=== PATIENT | male | born 1955 | race Caucasian/White ===

== ENCOUNTER 2018-12-11 18:00 | Inpatient (IN) | payer OTHER ==
[~2018-12-11] VITALS: Ht 167.6 cm; Wt 97.1 kg
[~2018-12-11 18:00] MED LIST: ALLO100T PO; BENA40TA56 PO; CLOP75TA27 PO; HYDR-3601 PO; METO10TA3 PO; SIMV40TA3 PO
[2018-12-12] VITALS (29 sets, daily range): BP systolic 138–176; BP diastolic 65–107; PULSE 62–73; RESP 15–22; Ht 167.6 cm; Wt 97.1 kg
[2018-12-12] MEDS ORDERED: DEXTROSE 5%-0.45% NACL 1,000 ML IV SCH (00:46)
--- NOTE | 2018-12-12 00:55 | HP ---
Date/Time of Note Date/Time of Note DATE: 12/12/18 TIME: 00:55 Assessment/Plan VTE Prophylaxis SCD applied (from Ns): Yes Pharmacological prophylaxis: other (plan for OR today ) Lines/Catheters IV Catheter Type (from Nrsg): Saline Lock Assessment/Plan Assessment/Plan 1. Right Tibia fracture - comminuted 2. H/o HTN 3. H/O HL 4. H/O psoriasis Plan: admission to med/surge floor BP stable,12 lead EKG NSR< CXR negative for acute findings Labs including CBC, CMP, PT pTT INR unremarkable Medically stable for Intramedullary nailing with appropriate surgical risks and complications Orthopedic Surgery Dr. Carlitos reynoso planning for OR on Thursday for GI prophylaxis SCD for DVT prophylaxis HPI/ROS Admit Date/Time Admit Date/Time Dec 12, 2018 at 00:08 Hx of Present Illness 63 M with PMHx of HTN< HL, H/o Tonsillectomy, Psoriasis who presented with after concrete fall at his leg, he working at his work and he is a construction job cost estimator. He presented to [facility] with right leg pain, he is noted to have right tibia fibula comminuted fracture that will require IM nailing. Due to some malfunction of OR at that hospital pt was transferred to [facility]- Orthopedic DrLincoln Reynoso has been consulted on the case and plan for OR in AM c/o Right leg pain, morphine IV is not working, BP has been stable< 12 Lead EKG normal, CXR negative for acute findings ROS Constitutional: no complaints Eyes: no complaints ENT: no complaints Respiratory: no complaints Cardiovascular: no complaints Gastrointestinal: no complaints Genitourinary: no complaints Musculoskeletal: bone/joint pain, swelling, other (right leg pain ) Skin: no complaints Neurologic: no complaints Endocrine: no complaints Lymphatic: no complaints Psychological: no complaints Immunologic: no complaints PMH/Family/Social Past Medical History Medical History: high cholesterol, hypertension, other (Psoriasis) Medications Current Medications Dextrose/Sodium Chloride 1,000 ml @ 75 mls/hr [id number] IV ; Start 12/12/18 at 00:46; Status UNV IV Flush (NS 3 ml) 3 ml PER PROTOCOL IV ; Start 12/12/18 at 01:00; Status UNV Ondansetron HCl (Zofran Inj) 4 mg Q6H PRN IV NAUSEA/VOMITING; Start 12/12/18 at 01:00; Status UNV Acetaminophen (Tylenol Tab) 650 mg Q6H PRN PO .PAIN 1-3 OR TEMP; Start 12/12/18 at 01:00; Status UNV Acetaminophen/ Hydrocodone Bitart ([place] (5/325)) 1 tab Q6H PRN PO .MOD PAIN 4- 6; Start 12/12/18 at 01:00; Status UNV Morphine Sulfate (morphine) 2 mg Q4H PRN IV .SEVERE PAIN 7-10; Start 12/12/18 at 01:00; Status UNV Docusate Sodium (Colace) 100 mg Q12H PRN PO .CONSTIPATION; Start 12/12/18 at 01:00; Status UNV Magnesium Hydroxide (Milk Of Mag) 30 ml DAILY PRN PO .CONSTIPATION; Start 12/12/18 at 01:00; Status UNV Bisacodyl (Dulcolax) 5 mg DAILY PRN PO .CONSTIPATION; Start 12/12/18 at 01:00; Status UNV Sodium Biphosphate/ Sodium Phosphate (Fleet Enema) 133 ml DAILY PRN [place] .CONSTIPATION; Start 12/12/18 at 01:00; Status UNV Zolpidem Tartrate (Ambien) 5 mg QHS PRN PO .INSOMNIA; Start 12/12/18 at 01:00; Status UNV Famotidine (Pepcid Iv) 20 mg Q12 IV ; Start 12/12/18 at 09:00; Status UNV Coded Allergies: No Known Allergy (Unverified , 12/12/18) Past Surgical History Past Surgical Hx: other (Tonsillectomy,) Family History Significant Family History: no pertinent family hx Social History Alcohol Use: none Smoking Status: Never smoker Drug Use: none Exam/Review of Systems Exam Constitutional: alert Psych: no complaints Head: normocephalic Eyes: nl conjunctiva ENMT: nl external ears & nose Neck: supple, non-tender Respiratory: clear to auscultation, normal air movement, diminished breath sounds Cardiovascular: regular rate and rhythm, nl pulses Gastrointestinal: soft, non-tender Musculoskeletal: nl extremities to inspection, nl gait and stance, muscle weakness, swelling, other (Right leg pain and swelling ) Neurological: STILL OPERATOR HELPER II-XII intact, nl mental status, nl speech, nl strength Skin: nl turgor Lymph: nl lymph nodes ROSS ISAACS MD Dec 12, 2018 00:55
[2018-12-12] MEDS ORDERED: MAGNESIUM HYDROXIDE 30ML CUP PO PRN (01:00)
[2018-12-12] MEDS ORDERED: ZOLPIDEM 5 MG TAB PO PRN (01:00)
[2018-12-12] MEDS ORDERED: DOCUSATE SODIUM 100 MG CAP PO PRN (01:00)
[2018-12-12] MEDS ORDERED: ONDANSETRON 4 MG INJ IV PRN ×2 (01:00→15:00)
[2018-12-12] MEDS ORDERED: NACL 0.9% 3 ML SYG IV SCH (01:00)
[2018-12-12] MEDS ORDERED: morphine 2 MG INJ IV PRN ×3 (01:00→15:00)
[2018-12-12] MEDS ORDERED: ACETAMINOPHEN 325 MG TAB PO PRN (01:00)
[2018-12-12] MEDS ORDERED: NA PHOSPHATE/BIPHOS 133 ML ENEMA PR PRN (01:00)
[2018-12-12] MEDS ORDERED: HYDROCODONE/APAP (5/325) TAB PO PRN ×3 (01:00→15:00)
[2018-12-12] MEDS ORDERED: BISACODYL (EC) 5 MG TAB PO PRN (01:00)
[2018-12-12] MEDS: HYDROmorphONE 1 MG/ML SYG IV PRN ×3 (01:27→23:06)
[2018-12-12] MEDS: BENAZEPRIL 40 MG TAB PO SCH (08:36)
[2018-12-12] MEDS: FAMOTIDINE 20 MG INJ IV SCH ×2 (08:36→20:45)
[2018-12-12] MEDS: AMLODIPINE 5 MG TAB PO SCH (08:36)
--- NOTE | 2018-12-12 10:40 | PREAC ---
Date/Time of Note Date/Time of Note DATE: 12/12/18 TIME: 10:38 Anesthesia Eval and Record Evaluation Time Pre-Procedure Interview DATE: 12/12/18 TIME: 10:38 Age 63 Sex male NPO: 8 hrs Preoperative diagnosis Rt Tibia fracture Planned procedure Rt Tibia ORIF Past Medical History Past Medical History: Includes Cardio: HTN, Dyslipidemia GI: Morbid obesity Surgery & Anesthesia Issues No known issue Meds Anticoagulation: No Beta Aydee within 24 hr: No Reason Beta Aydee not given: Pt. not on B-Aydee Current Medications Dextrose/Sodium Chloride 1,000 ml @ 75 mls/hr [id number] IV Last administered on 12/12/18at 01:26; Admin Dose 75 MLS/HR; Start 12/12/18 at 00:46 IV Flush (NS 3 ml) 3 ml PER PROTOCOL IV ; Start 12/12/18 at 01:00 Ondansetron HCl (Zofran Inj) 4 mg Q6H PRN IV NAUSEA/VOMITING; Start 12/12/18 at 01:00 Acetaminophen (Tylenol Tab) 650 mg Q6H PRN PO .PAIN 1-3 OR TEMP; Start 12/12/18 at 01:00 Acetaminophen/ Hydrocodone Bitart ([place] (5/325)) 1 tab Q6H PRN PO .MOD PAIN 4- 6; Start 12/12/18 at 01:00 Docusate Sodium (Colace) 100 mg Q12H PRN PO .CONSTIPATION; Start 12/12/18 at 01:00 Magnesium Hydroxide (Milk Of Mag) 30 ml DAILY PRN PO .CONSTIPATION; Start 12/12/18 at 01:00 Bisacodyl (Dulcolax) 5 mg DAILY PRN PO .CONSTIPATION; Start 12/12/18 at 01:00 Sodium Biphosphate/ Sodium Phosphate (Fleet Enema) 133 ml DAILY PRN [place] .CONSTIPATION; Start 12/12/18 at 01:00 Zolpidem Tartrate (Ambien) 5 mg QHS PRN PO .INSOMNIA; Start 12/12/18 at 01:00 Famotidine (Pepcid Iv) 20 mg Q12 IV Last administered on 12/12/18at 08:36; Admin Dose 20 MG; Start 12/12/18 at 09:00 Hydromorphone HCl (Dilaudid) 1 mg Q4H PRN IV SEVERE PAIN LEVEL 7-10 Last administered on 12/12/18at 08:39; Admin Dose 1 MG; Start 12/12/18 at 01:00 Atorvastatin Calcium (Lipitor) 80 mg HS PO ; Start 12/12/18 at 21:00 Benazepril HCl (Lotensin) 40 mg DAILY PO Last administered on 12/12/18at 08:36; Admin Dose 40 MG; Start 12/12/18 at 09:00 Amlodipine Besylate (Norvasc) 5 mg DAILY PO Last administered on 12/12/18at 08:36; Admin Dose 5 MG; Start 12/12/18 at 09:00 Meds reviewed: Yes Allergies Coded Allergies: No Known Allergy (Unverified , 12/12/18) Allergies Reviewed: Yes Labs/Studies Labs Reviewed: Reviewed by anesthesiologist Result Diagram: 12/12/18 0436 12/12/18 0436 Laboratory Tests 12/12/18 04:36 test: N/A Studies: ECG Pre-procedure Exam Last vitals Vital Signs Date Temp Pulse Resp B/P (MAP) Pulse Ox O2 O2 Flow FiO2 Time Delivery Rate 12/12/18 99.3 65 15 164/79 96 Room Air 07:14 (107) Airway: Adequate mouth opening, Adequate thyromental dist Mallampati: Mallampati III Teeth: Normal Lung: Normal Heart: Normal ASA Physical Status ASA physical status: 3 Emergency: E Planned Anesthetic General/MAC: ETT Planned Pain Management Single shot nerve block, Parenteral pain med Pre-operative Attestations Prior to commencing anesthesia and surgery, the patient was re-evaluated, there was verification of: *The patient's identity *The results of appropriate recent lab work and preoperative vital signs *The above evaluation not changing prior to induction *Anesthetic plan, risk benefits, alternative and complications discussed with patient/family; questions answered; patient/family understands, accepts and wishes to proceed. MICHAELA MONTERROSO MD Dec 12, 2018 10:40
[2018-12-12] MEDS ORDERED: POLYMYXIN/BACITRACIN 1L IRRIG ONE (10:46)
--- NOTE | 2018-12-12 11:05 | HPN ---
Date/Time of Note Date/Time of Note DATE: 12/12/18 TIME: 11:04 Interval H&P Admission Note Pt. seen H&P reviewed: No system changes DIMITRIS LEROY MD Dec 12, 2018 11:05
[2018-12-12] MEDS ORDERED: MIDAZOLAM 1 MG/ML 2 ML INJ ONE (11:07)
[2018-12-12] MEDS ORDERED: ROPIVACAINE 0.5 % 30 ML VIAL ONE (11:20)
[2018-12-12] MEDS ORDERED: BUPIVACAINE 0.5% (SDV) 30 ML INJ ONE (11:20)
[2018-12-12] MEDS ORDERED: ONDANSETRON 4 MG INJ ONE (14:01)
[2018-12-12] MEDS ORDERED: CEFAZOLIN 1 GM INJ ONE (14:01)
[2018-12-12] MEDS ORDERED: ETOMIDATE 20 MG INJ ONE (14:01)
[2018-12-12] MEDS ORDERED: ROCURONIUM 50 MG INJ ONE (14:01)
[2018-12-12] MEDS ORDERED: LIDOCAINE 2% (SDV) 5 ML INJ ONE (14:01)
[2018-12-12] MEDS ORDERED: PROPOFOL 20 ML ONE (14:01)
--- NOTE | 2018-12-12 14:43 | PAC ---
Date/Time of Note Date/Time of Note DATE: 12/12/18 TIME: 14:42 Post-Anesthesia Notes Post-Anesthesia Note Last documented vital signs Vital Signs Date Temp Pulse Resp B/P (MAP) Pulse Ox O2 O2 Flow FiO2 Time Delivery Rate 12/12/18 99.3 65 15 164/79 96 Room Air 07:14 (107) Activity: WNL Respiratory function: WNL Cardiovascular function: WNL Mental status: Baseline Pain reasonably controlled: Yes Hydration appropriate: Yes Nausea/Vomiting absent: Yes Comments BP:140/72, P:62, Spo2:100%, T:98,8 MICHAELA MONTERROSO MD Dec 12, 2018 14:43
[2018-12-12] MEDS ORDERED: DIPHENHYDRAMINE 50 MG INJ IV PRN (15:00)
[2018-12-12] MEDS ORDERED: NALOXONE (0.4 MG/ML) INJ IV PRN (15:00)
[2018-12-12] MEDS ORDERED: hydrALAzine 20 MG INJ IV PRN ×2 (15:00→20:00)
[2018-12-12] MEDS ORDERED: morphine 4 MG/ML VIAL IV PRN (15:00)
[2018-12-12] MEDS ORDERED: FENTAnyl 50 MCG/ML VIAL IV PRN (15:00)
[2018-12-12] MEDS ORDERED: MEPERIDINE 25 MG INJ IV PRN (15:00)
[2018-12-12] MEDS ORDERED: METOCLOPRAMIDE 10 MG INJ IV PRN (15:00)
--- NOTE | 2018-12-12 15:45 | SIPON ---
Date/Time of Note Date/Time of Note DATE: 12/12/18 TIME: 15:33 Operative Report Preoperative Diagnosis comminuted fracture of tibia and fibula of right leg Postoperative Diagnosis same Operation/Procedure Performed O.R.I.F offracture of right tibia by intramedullary nailing Surgeon see signature line driller's assistant none Anesthesia: general Estimated blood loss: 10 - 50 ml's Transfusion Required none Specimen none Grafts/Implants intramedullary nail Complications none DIMITRIS LEROY MD Dec 12, 2018 15:45
[2018-12-12] MEDS: D5W-0.45 NACL + KCL 20 MEQ 1,000 ML IV SCH (16:50)
--- NOTE | 2018-12-12 17:39 | OPR ---
DATE OF OPERATION: 12/12/2018 PREOPERATIVE DIAGNOSIS: Severely comminuted and displaced fractures involving tibia and fibula of th e right leg plus fracture of the fibular neck of the right leg. POSTOPERATIVE DIAGNOSIS: Severely comminuted and displaced fractures involving tibia and fibula of t he right leg plus fracture of the fibular neck of the right leg. OPERATION PERFORMED: Open reduction and internal fixation of the comminuted tibial shaft fracture of the right leg by intramedullary nailing. ANESTHESIA: General anesthesia. SURGEON: Yecenia Leroy MD PROCEDURE AND FINDINGS: Under general anesthesia, the patient was placed in supine position upon the operating table ____, I carried out the prep and drape. The splint was removed and it revealed the presence of extensive fracture of the right tibia and fibula. There was an abnormal motion at the fr acture site along with some degree of the hematoma. The usual prep and drape was done exposing the r ight leg and right knee. A tourniquet was placed over the proximal portion of the right leg and was inflated up to 300 mmHg prior to the procedure. Proximal end of the right tibia was approached throu gh the anterior long incision and by blunt and sharp dissection, proximal tibia was identified and ex posed. Using metallic ____, intramedullary canal was entered proximally. The reamer guide was then introduced into the intramedullary canal and proper adjustment measurement was made and it was our im pression that 20 cm x 10 mm wide nail should be the nail of the choice. After reaming along the guid e reamer guide, selected intramedullary nail was inserted. After proper adjustment, the 2 distal loc yesenia screw and 1 proximal locking screw was inserted. At the end of the procedure, the overall align ment of the fracture was entirely satisfactory and the position of the fixation device was proper. A fter irrigation and hemostasis, closure of the incision was carried out using 0 Vicryl for muscle and fascia and 2-0 Vicryl for subcutaneous tissues. Final skin closure was carried out with skin staple s. Usual sterile pressure dressings were applied. The patient tolerated the entire procedure very well and was sent to the recovery room in good condit ion. Dictated By: YECENIA LEROY MD IK/FINN Conf#: [id number] DID#: [id number] CC: ROSS ISAACS MD;*[facility]*
[2018-12-12] MEDS: ATORVASTATIN 80 MG TAB PO SCH (20:45)
[2018-12-12] MEDS ORDERED: ATORVASTATIN 20 MG TAB PO SCH (21:00)
[2018-12-13 00:01] VITALS: BP 165/81; PULSE 82; RESP 20
[2018-12-13 03:51] VITALS: BP 141/68; PULSE 72; RESP 20
[2018-12-13] MEDS: HYDROmorphONE 1 MG/ML SYG IV PRN ×2 (03:53→09:39)
[2018-12-13] MEDS: D5W-0.45 NACL + KCL 20 MEQ 1,000 ML IV SCH (06:22)
[2018-12-13 07:23] VITALS: BP 161/77; PULSE 84; RESP 19
[2018-12-13] MEDS: FAMOTIDINE 20 MG INJ IV SCH (08:35)
[2018-12-13] MEDS: BENAZEPRIL 40 MG TAB PO SCH (08:35)
[2018-12-13] MEDS: CLOPIDOGREL 75 MG TAB PO SCH (08:36)
[2018-12-13] MEDS: ALLOPURINOL 100 MG TAB PO SCH (08:36)
[2018-12-13] MEDS: AMLODIPINE 5 MG TAB PO SCH (08:36)
[2018-12-13] MEDS ORDERED: BENAZEPRIL 40 MG TAB PO SCH (09:00)
--- NOTE | 2018-12-13 11:18 | PN ---
Date/Time of Note Date/Time of Note DATE: 12/13/18 TIME: 11:18 Assessment/Plan VTE Prophylaxis Risk score (from Ns)>0 risk: 5 SCD applied (from Ns): Yes Pharmacological prophylaxis: LMWH Lines/Catheters IV Catheter Type (from Nrsg): Peripheral IV Assessment/Plan Assessment/Plan 1. Right Tibia fracture - comminuted s/p ORIF with IM Nailing on 12/12/18 2. H/o HTN 3. H/O HL 4. H/O psoriasis Plan: s/p Open reduction and internal fixation of the comminuted tibial shaft fracture of the right leg by intramedullary nailing by Dr. Urbina claudio [facility] on 12/12/18 d/c iVF pain control lovenox 40mg SQ daily for DVT prophylaixs pepcid for GI prophylaxis Result Diagram: 12/12/18 0436 12/12/18435 Exam/Review of Systems Exam Vitals Vital Signs Date Temp Pulse Resp B/P (MAP) Pulse Ox O2 O2 Flow FiO2 Time Delivery Rate 12/13/18 97.1 84 19 161/77 97 07:23 (105) 12/13/18 Room Air 03:51 12/12/18 8.0 14:56 Intake and Output 12/12/18 12/12/18 12/13/18 1515:00 23:00 07:00 IntakeIntake Total 1300 ml 550 ml 500 ml OutputOutput Total 75 ml 1100 ml 800 ml BalanceBalance 1225 ml -550 ml -300 ml Constitutional: alert Psych: no complaints Head: normocephalic, other (Posterior scalp dressing + cristina on ) Eyes: nl conjunctiva Neck: supple, non-tender Respiratory: clear to auscultation, normal air movement Cardiovascular: regular rate and rhythm, nl pulses Gastrointestinal: soft, non-tender Musculoskeletal: nl extremities to inspection, other (right leg dressing in place ) Neurological: WEB WEAVER II-XII intact, nl mental status Skin: nl turgor Lymph: nl lymph nodes Medications Medication Current Medications IV Flush (NS 3 ml) 3 ml PER PROTOCOL IV ; Start 12/12/18 at 01:00 Ondansetron HCl (Zofran Inj) 4 mg Q6H PRN IV NAUSEA/VOMITING; Start 12/12/18 at 01:00 Acetaminophen (Tylenol Tab) 650 mg Q6H PRN PO .PAIN 1-3 OR TEMP; Start 12/12/18 at 01:00 Docusate Sodium (Colace) 100 mg Q12H PRN PO .CONSTIPATION; Start 12/12/18 at 01:00 Magnesium Hydroxide (Milk Of Mag) 30 ml DAILY PRN PO .CONSTIPATION; Start 12/12/18 at 01:00 Bisacodyl (Dulcolax) 5 mg DAILY PRN PO .CONSTIPATION; Start 12/12/18 at 01:00 Sodium Biphosphate/ Sodium Phosphate (Fleet Enema) 133 ml DAILY PRN [place] .C ONSTIPATION; Start 12/12/18 at 01:00 Zolpidem Tartrate (Ambien) 5 mg QHS PRN PO .INSOMNIA; Start 12/12/18 at 01:00 Famotidine (Pepcid Iv) 20 mg Q12 IV Last administered on 12/13/18 08:35; Admin Dose 20 MG; Start 12/12/18 at 09:00 Hydromorphone HCl (Dilaudid) 1 mg Q4H PRN IV SEVERE PAIN LEVEL 7-10 Last administered on 12/13/18 09:39; Admin Dose 1 MG; Start 12/12/18 at 01:00 Atorvastatin Calcium (Lipitor) 80 mg HS PO Last administered on 12/12/18at 20:45; Admin Dose 80 MG; Start 12/12/18 at 21:00 Benazepril HCl (Lotensin) 40 mg DAILY PO Last administered on 12/13/18 08:35; Admin Dose 40 MG; Start 12/12/18 at 09:00 Amlodipine Besylate (Norvasc) 5 mg DAILY PO Last administered on 12/13/18 08:36; Admin Dose 5 MG; Start 12/12/18 at 09:00 Potassium Chloride/Dextrose/ Sod Cl 1,000 ml @ 50 mls/hr Q20H IV Last administered on 12/12/18at 16:50; Admin Dose 100 MLS/HR; Start 12/12/18 at 14:59 Morphine Sulfate (morphine) 3 mg Q3H PRN IV SEVERE PAIN LEVEL 7-10; Start 12/12/18 at 15:00 Acetaminophen/ Hydrocodone Bitart ([place] (5/325)) 1 tab Q4H PRN PO MODERATE PAIN LEVEL 4-6 Last administered on 8/5/19at 08:37; Admin Dose 1 TAB; Start 12/12/18 at 15:00 Allopurinol (Zyloprim) 100 mg DAILY PO Last administered on 12/13/18 08:36; Admin Dose 100 MG; Start 12/13/18 at 09:00 Clopidogrel Bisulfate (plaVIX) 75 mg DAILY PO Last administered on 12/13/18at 08:36; Admin Dose 75 MG; Start 12/13/18 at 09:00 Hydralazine HCl (Apresoline) 10 mg Q4H PRN IV ELEVATED BLOOD PRESSURE Last administered on 12/13/18at 00:06; Admin Dose 10 MG; Start 12/12/18 at 20:00 Acetaminophen/ Hydrocodone Bitart ([place] (10/325)) 1 tab Q4H PRN PO MODERATE PAIN LEVEL 4-6; Start 12/13/18 at 10:30 ROSS ISAACS MD Dec 13, 2018 11:18
[2018-12-13] MEDS: HYDROCODONE/APAP (10/325) TAB PO PRN ×2 (12:12→15:57)
[2018-12-13 15:40] VITALS: BP 142/62; PULSE 82; RESP 19
[2018-12-13 19:56] VITALS: BP 138/67; PULSE 68; RESP 18
[2018-12-13] MEDS: FAMOTIDINE 20 MG TAB PO SCH (21:04)
[2018-12-13] MEDS: ATORVASTATIN 80 MG TAB PO SCH (21:04)
[2018-12-14] MEDS: HYDROCODONE/APAP (10/325) TAB PO PRN ×4 (03:58→20:08)
[2018-12-14 07:42] VITALS: BP 120/57; PULSE 66; RESP 19
[2018-12-14] MEDS: CLOPIDOGREL 75 MG TAB PO SCH (08:28)
[2018-12-14] MEDS: ALLOPURINOL 100 MG TAB PO SCH (08:28)
[2018-12-14] MEDS: FAMOTIDINE 20 MG TAB PO SCH ×2 (08:29→20:07)
[2018-12-14] MEDS: BENAZEPRIL 40 MG TAB PO SCH (08:31)
[2018-12-14] MEDS: AMLODIPINE 5 MG TAB PO SCH (08:31)
[2018-12-14] MEDS: ENOXAPARIN 40 MG/0.4 ML SYG SC SCH (08:33)
--- NOTE | 2018-12-14 11:58 | PN ---
Date/Time of Note Date/Time of Note DATE: 12/14/18 TIME: 11:58 Assessment/Plan VTE Prophylaxis Risk score (from [facility])>0 risk: 9 SCD applied (from [facility]): Yes Pharmacological prophylaxis: LMWH Lines/Catheters IV Catheter Type (from [facility]): Saline Lock Assessment/Plan Assessment/Plan 1. Right Tibia fracture - comminuted s/p ORIF with IM Nailing on 12/12/18 2. H/o HTN 3. H/O HL 4. H/O psoriasis Plan: s/p Open reduction and internal fixation of the comminuted tibial shaft fracture of the right leg by intramedullary nailing by Dr. Carlitos white on 12/12/18 lovenox 40mg SQ daily for DVT prophylaixs pepcid for GI prophylaxis plan for d/c to home on Thursday if ok with orthopedic DrSandy reynoso will follow up Result Diagram: 12/14/18 0433 12/14/18 0433 Results 24hrs Laboratory Tests Test 12/14/18 04:33 White Blood Count 8.4 Red Blood Count 3.49 L Hemoglobin 10.5 L Hematocrit 31.6 L Mean Corpuscular Volume 90.5 Mean Corpuscular Hemoglobin 30.1 Mean Corpuscular Hemoglobin Concent 33.2 Red Cell Distribution Width 13.5 Platelet Count 164 Mean Platelet Volume 11.6 H Immature Granulocytes % 0.200 Neutrophils % 67.4 Lymphocytes % 19.1 Monocytes % 10.3 Eosinophils % 2.6 Basophils % 0.4 Nucleated Red Blood Cells % 0.0 Immature Granulocytes # 0.020 Neutrophils # 5.7 Lymphocytes # 1.6 Monocytes # 0.9 Eosinophils # 0.2 Basophils # 0.0 Nucleated Red Blood Cells # 0.0 Prothrombin Time 15.4 H Prothrombin Time Ratio 1.2 INR International Normalized Ratio 1.21 Activated Partial Thromboplast Time 37.7 H Sodium Level 136 Potassium Level 4.2 Chloride Level 100 Carbon Dioxide Level 30 Anion Gap 6 Blood Urea Nitrogen 12 Creatinine 0.86 Est Glomerular Filtrat Rate mL/min > 60 Glucose Level 125 Calcium Level 8.9 Total Bilirubin 1.3 Direct Bilirubin 0.00 Indirect Bilirubin 1.3 H Aspartate Amino Transf (AST/SGOT) 95 #H Alanine Aminotransferase (ALT/SGPT) 85 H Alkaline Phosphatase 81 # Total Protein 6.9 Albumin 3.6 Globulin 3.30 H Albumin/Globulin Ratio 1.09 Exam/Review of Systems Exam Vitals Vital Signs Date Temp Pulse Resp B/P (MAP) Pulse Ox O2 O2 Flow FiO2 Time Delivery Rate 12/14/18 97.2 66 19 120/57 97 07:42 (78) 12/13/18 Room Air 03:51 12/12/18 8.0 14:56 Intake and Output 12/13/18 12/13/18 12/14/18 1515:00 23:00 07:00 IntakeIntake Total 1000 ml 780 ml 4000 ml OutputOutput Total 150 ml 1200 ml 1300 ml BalanceBalance 850 ml -420 ml 2700 ml Exam Constitutional: alert Respiratory: clear to auscultation, normal air movement Cardiovascular: regular rate and rhythm, nl pulses Gastrointestinal: soft, non-tender Musculoskeletal: nl extremities to inspection, other (right leg dressing in place ) Neurological: CYBER WORKFORCE DEVELOPER AND MANAGER II-XII intact, nl mental status Results Results 24hrs Laboratory Tests Test 12/14/18 04:33 White Blood Count 8.4 Red Blood Count 3.49 L Hemoglobin 10.5 L Hematocrit 31.6 L Mean Corpuscular Volume 90.5 Mean Corpuscular Hemoglobin 30.1 Mean Corpuscular Hemoglobin Concent 33.2 Red Cell Distribution Width 13.5 Platelet Count 164 Mean Platelet Volume 11.6 H Immature Granulocytes % 0.200 Neutrophils % 67.4 Lymphocytes % 19.1 Monocytes % 10.3 Eosinophils % 2.6 Basophils % 0.4 Nucleated Red Blood Cells % 0.0 Immature Granulocytes # 0.020 Neutrophils # 5.7 Lymphocytes # 1.6 Monocytes # 0.9 Eosinophils # 0.2 Basophils # 0.0 Nucleated Red Blood Cells # 0.0 Prothrombin Time 15.4 H Prothrombin Time Ratio 1.2 INR International Normalized Ratio 1.21 Activated Partial Thromboplast Time 37.7 H Sodium Level 136 Potassium Level 4.2 Chloride Level 100 Carbon Dioxide Level 30 Anion Gap 6 Blood Urea Nitrogen 12 Creatinine 0.86 Est Glomerular Filtrat Rate mL/min > 60 Glucose Level 125 Calcium Level 8.9 Total Bilirubin 1.3 Direct Bilirubin 0.00 Indirect Bilirubin 1.3 H Aspartate Amino Transf (AST/SGOT) 95 #H Alanine Aminotransferase (ALT/SGPT) 85 H Alkaline Phosphatase 81 # Total Protein 6.9 Albumin 3.6 Globulin 3.30 H Albumin/Globulin Ratio 1.09 Medications Medication Current Medications IV Flush (NS 3 ml) 3 ml PER PROTOCOL IV ; Start 12/12/18 at 01:00 Ondansetron HCl (Zofran Inj) 4 mg Q6H PRN IV NAUSEA/VOMITING; Start 12/12/18 at 01:00 Acetaminophen (Tylenol Tab) 650 mg Q6H PRN PO .PAIN 1-3 OR TEMP; Start 12/12/18 at 01:00 Docusate Sodium (Colace) 100 mg Q12H PRN PO .CONSTIPATION; Start 12/12/18 at 01:00 Magnesium Hydroxide (Milk Of Mag) 30 ml DAILY PRN PO .CONSTIPATION; Start 12/12/18 at 01:00 Bisacodyl (Dulcolax) 5 mg DAILY PRN PO .CONSTIPATION; Start 12/12/18 at 01:00 Sodium Biphosphate/ Sodium Phosphate (Fleet Enema) 133 ml DAILY PRN [place] .CONSTIPATION; Start 12/12/18 at 01:00 Zolpidem Tartrate (Ambien) 5 mg QHS PRN PO .INSOMNIA; Start 12/12/18 at 01:00 Hydromorphone HCl (Dilaudid) 1 mg Q4H PRN IV SEVERE PAIN LEVEL 7-10 Last administered on 12/13/18at 09:39; Admin Dose 1 MG; Start 12/12/18 at 01:00 Atorvastatin Calcium (Lipitor) 80 mg HS PO Last administered on 12/13/18at 21:04; Admin Dose 80 MG; Start 12/12/18 at 21:00 Benazepril HCl (Lotensin) 40 mg DAILY PO Last administered on 12/14/18at 08:31; Admin Dose 40 MG; Start 12/12/18 at 09:00 Amlodipine Besylate (Norvasc) 5 mg DAILY PO Last administered on 12/14/18at 08:31; Admin Dose 5 MG; Start 12/12/18 at 09:00 Morphine Sulfate (morphine) 3 mg Q3H PRN IV SEVERE PAIN LEVEL 7-10; Start 12/12/18 at 15:00 Acetaminophen/ Hydrocodone Bitart ([place] (5/325)) 1 tab Q4H PRN PO MODERATE PAIN LEVEL 4-6 Last administered on 12/13/18at 08:37; Admin Dose 1 TAB; Start 12/12/18 at 15:00 Allopurinol (Zyloprim) 100 mg DAILY PO Last administered on 12/14/18 08:28; Admin Dose 100 MG; Start 12/13/18 at 09:00 Clopidogrel Bisulfate (plaVIX) 75 mg DAILY PO Last administered on 12/14/18 08:28; Admin Dose 75 MG; Start 12/13/18 at 09:00 Hydralazine HCl (Apresoline) 10 mg Q4H PRN IV ELEVATED BLOOD PRESSURE Last administered on 12/13/18at 00:06; Admin Dose 10 MG; Start 12/12/18 at 20:00 Acetaminophen/ Hydrocodone Bitart ([place] (10/325)) 1 tab Q4H PRN PO MODERATE PAIN LEVEL 4-6 Last administered on 12/14/18at 10:32; Admin Dose 1 TAB; Start 12/13/18 at 10:30 Famotidine (Pepcid) 20 mg Q12 PO Last administered on 12/14/18 08:29; Admin Dose 20 MG; Start 12/13/18 at 21:00 Enoxaparin Sodium (Lovenox) 40 mg DAILY [place] Last administered on 12/14/18at 08:33; Admin Dose 40 MG; Start 12/14/18 at 09:00 ROSS ISAACS MD Dec 14, 2018 11:58
[2018-12-14 14:12] VITALS: BP 131/62; PULSE 72; RESP 18
--- NOTE | 2018-12-14 17:18 | PN ---
DATE: 12/14/2018 Second postop day. Vital signs are stable. Postop x-ray shows satisfactory alignment of the fractur e along with the proper position of the fixation device. Have been up with physical therapy. Okay t o be discharged for further followup including repeated x-rays and removal of cristina in 2 weeks as a n outpatient. Dictated By: YECENIA KWON/FINN Conf#: [id number] DID#: [id number] CC: ROSS ISAACS MD;*[facility]*
[2018-12-14 20:07] VITALS: BP 116/59; PULSE 62; RESP 18
[2018-12-14] MEDS: ATORVASTATIN 80 MG TAB PO SCH (20:07)
[2018-12-15 02:11] VITALS: BP 144/71; PULSE 62; RESP 18
[2018-12-15] MEDS: HYDROCODONE/APAP (10/325) TAB PO PRN ×3 (04:46→20:08)
[2018-12-15 07:21] VITALS: BP 156/71; PULSE 64; RESP 15
[2018-12-15] MEDS: FAMOTIDINE 20 MG TAB PO SCH ×2 (08:49→20:08)
[2018-12-15] MEDS: BENAZEPRIL 40 MG TAB PO SCH (08:49)
[2018-12-15] MEDS: CLOPIDOGREL 75 MG TAB PO SCH (08:50)
[2018-12-15] MEDS: AMLODIPINE 5 MG TAB PO SCH (08:50)
[2018-12-15] MEDS: ALLOPURINOL 100 MG TAB PO SCH (08:50)
[2018-12-15] MEDS: ENOXAPARIN 40 MG/0.4 ML SYG SC SCH (10:51)
--- NOTE | 2018-12-15 11:53 | PN ---
Date/Time of Note Date/Time of Note DATE: 12/15/18 TIME: 11:51 Assessment/Plan VTE Prophylaxis Risk score (from Ns)>0 risk: 13 SCD applied (from Ns): Yes Pharmacological prophylaxis: LMWH Lines/Catheters IV Catheter Type (from Nrsg): Saline Lock Central line still needed: No Urinary Cath still in place: No Assessment/Plan Assessment/Plan 1. Right Tibia fracture - comminuted s/p ORIF with IM Nailing on 12/12/18 2. H/o HTN 3. H/O HL 4. H/O psoriasis Plan: s/p Open reduction and internal fixation of the comminuted tibial shaft fracture of the right leg by intramedullary nailing by In [place] [facility] on 12/12/18 lovenox 40mg SQ daily for DVT prophylaixs pepcid for GI prophylaxis plan for d/c to home today if ok with orthopedic In [place] reynoso will follow up Result Diagram: 12/14/1843212/14/18 043 Subjective 24 Hr Interval Summary Free Text/Dictation doing better, BP stable,a febrile Exam/Review of Systems Exam Vitals Vital Signs Date Temp Pulse Resp B/P (MAP) Pulse Ox O2 O2 Flow FiO2 Time Delivery Rate 12/15/18 98.2 64 15 156/71 100 Room Air 07:21 (99) 12/12/18 8.0 14:56 Intake and Output 12/14/18 12/14/18 12/15/18 1515:00 23:00 07:00 IntakeIntake Total 220 ml 400 ml 300 ml OutputOutput Total 450 ml 700 ml BalanceBalance 220 ml -50 ml -400 ml Constitutional: alert Psych: no complaints Head: normocephalic Eyes: nl conjunctiva Neck: supple, non-tender Respiratory: clear to auscultation, normal air movement, diminished breath sounds Cardiovascular: regular rate and rhythm, nl pulses Gastrointestinal: soft, non-tender Musculoskeletal: nl extremities to inspection, swelling (right feet swellling , right leg cast in place ) Extremities: normal pulses 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, nl mental status, nl speech, nl strength Skin: nl turgor Lymph: nl lymph nodes Medications Medication Current Medications IV Flush (NS 3 ml) 3 ml PER PROTOCOL IV ; Start 12/12/18 at 01:00 Ondansetron HCl (Zofran Inj) 4 mg Q6H PRN IV NAUSEA/VOMITING; Start 12/12/18 at 01:00 Acetaminophen (Tylenol Tab) 650 mg Q6H PRN PO .PAIN 1-3 OR TEMP; Start 12/12/18 at 01:00 Docusate Sodium (Colace) 100 mg Q12H PRN PO .CONSTIPATION; Start 12/12/18 at 01:00 Magnesium Hydroxide (Milk Of Mag) 30 ml DAILY PRN PO .CONSTIPATION; Start 12/12/18 at 01:00 Bisacodyl (Dulcolax) 5 mg DAILY PRN PO .CONSTIPATION Last administered on 12/15/18at 10:50; Admin Dose 5 MG; Start 12/12/18 at 01:00 Sodium Biphosphate/ Sodium Phosphate (Fleet Enema) 133 ml DAILY PRN MA .CONSTIPATION; Start 12/12/18 at 01:00 Zolpidem Tartrate (Ambien) 5 mg QHS PRN PO .INSOMNIA; Start 12/12/18 at 01:00 Hydromorphone HCl (Dilaudid) 1 mg Q4H PRN IV SEVERE PAIN LEVEL 7-10 Last administered on 12/13/18at 09:39; Admin Dose 1 MG; Start 12/12/18 at 01:00 Atorvastatin Calcium (Lipitor) 80 mg HS PO Last administered on 12/14/18at 20:07; Admin Dose 80 MG; Start 12/12/18 at 21:00 Benazepril HCl (Lotensin) 40 mg DAILY PO Last administered on 12/15/18at 08:49; Admin Dose 40 MG; Start 12/12/18 at 09:00 Amlodipine Besylate (Norvasc) 5 mg DAILY PO Last administered on 12/15/18at 08:50; Admin Dose 5 MG; Start 12/12/18 at 09:00 Morphine Sulfate (morphine) 3 mg Q3H PRN IV SEVERE PAIN LEVEL 7-10; Start 12/12/18 at 15:00 Acetaminophen/ Hydrocodone Bitart ([place] (5/325)) 1 tab Q4H PRN PO MODERATE PAIN LEVEL 4-6 Last administered on 12/13/18at 08:37; Admin Dose 1 TAB; Start 12/12/18 at 15:00 Allopurinol (Zyloprim) 100 mg DAILY PO Last administered on 12/15/18 08:50; Admin Dose 100 MG; Start 12/13/18 at 09:00 Clopidogrel Bisulfate (plaVIX) 75 mg DAILY PO Last administered on 12/15/18 08:50; Admin Dose 75 MG; Start 12/13/18 at 09:00 Hydralazine HCl (Apresoline) 10 mg Q4H PRN IV ELEVATED BLOOD PRESSURE Last adm inistered on 12/13/18 00:06; Admin Dose 10 MG; Start 12/12/18 at 20:00 Acetaminophen/ Hydrocodone Bitart ([place] (10/325)) 1 tab Q4H PRN PO MODERATE PAIN LEVEL 4-6 Last administered on 12/15/18 04:46; Admin Dose 1 TAB; Start 12/13/18 at 10:30 Famotidine (Pepcid) 20 mg Q12 PO Last administered on 12/15/18 08:49; Admin Dose 20 MG; Start 12/13/18 at 21:00 Enoxaparin Sodium (Lovenox) 40 mg DAILY SC Last administered on 12/15/18 10:51; Admin Dose 40 MG; Start 12/14/18 at 09:00 ROSS ISAACS MD Dec 15, 2018 11:53
--- NOTE | 2018-12-15 11:55 | PDOCDIS ---
Discharge Instructions CONDITION [id number] Patient Condition: [id number] Good HOME CARE INSTRUCTIONS: [id number] Diet Instructions: [id number] Regular ACTIVITY: [id number] Activity Restrictions: [id number] Slowly Increase Activity Rest between Activity Avoid heavy lifting No Sexual Activity Do not Drive Do not operate Machinery Do not operate Power Tool Avoid Heavy Housework Weight Bearing Partial Weight Bearing Special Exercises FOLLOW UP/APPOINTMENTS Follow-up Plan Follow up with Orthopedic Surgery DrLincoln [facility] [place] reynoso in 1 week. Follow up with his own pCP in 1 week ROSS ISAACS MD Dec 15, 2018 11:55
[2018-12-15 14:14] VITALS: BP 156/68; PULSE 63; RESP 14
[2018-12-15 19:25] VITALS: BP 133/68; PULSE 63; RESP 20
[2018-12-15] MEDS: ATORVASTATIN 80 MG TAB PO SCH (20:08)
--- NOTE | 2018-12-29 22:21 | DS ---
Date/Time of Note Date/Time of Note DATE: 12/29/18 TIME: 22:21 Discharge Summary Admission/Discharge Info Admit Date/Time Dec 12, 2018 at 00:08 Discharge Date/Time Dec 15, 2018 at 21:20 Discharge Diagnosis 1. Right Tibia fracture - comminuted s/p ORIF with IM Nailing on 12/12/18 2. H/o HTN 3. H/O HL 4. H/O psoriasis Patient Condition: Good Consults Orthopedic surgery consult Dr. Carlitos Reynoso Procedures Open reduction Internal Fixation with IM nailing of Right leg comminuted fracture by Orthopedic surgery Dr. Carlitos reynoso on 12/12/18 Hx of Present Illness 63 M with PMHx of HTN< HL, H/o Tonsillectomy, Psoriasis who presented with after concrete fall at his leg, he working at his work and he is a laborer construction or leak gang. He presented to [facility] with right leg pain, he is noted to have right tibia fibula comminuted fracture that will require IM nailing. Due to some malfunction of OR at that hospital pt was transferred to [facility]- Orthopedic DrLincoln Reynoso has been consulted on the case and plan for OR in AM c/o Right leg pain, morphine IV is not working, BP has been stable< 12 Lead EKG normal, CXR negative for acute findings Hospital Course pt was evaluated by dr. Reynoso and he underwent ORIF with IM nailing on 12/12/18- Postoperative he remained stable, Bp was stable he was offered to go to SNF but he refused and he wanted to go home, He was discharged home with home health, [place] for pain control was given upon discharge. Home Meds Active Scripts Hydrocodone Bit-Acetaminophen (Hydrocodone Bit-APAP) 5-325MG Tablet, 1 TAB PO Q6H PRN for PAIN, #45 TAB Prov:ROSS ISAACS MD 12/15/18 Metoclopramide Hcl* (Metoclopramide Hcl*) 10 Mg Tablet, 10 MG PO Q6H PRN for NAUSEA AND OR VOMITING, #30 TAB Prov:ROSS ISAACS MD 12/15/18 Reported Medications Clopidogrel Bisulfate (Clopidogrel) 75 Mg Tablet, 75 MG PO DAILY, #30 TAB 12/12/18 Benazepril Hcl* (Benazepril Hcl*) 40 Mg Tablet, 40 MG PO DAILY, #30 TAB 12/12/18 Allopurinol* (Allopurinol*) 100 Mg Tablet, 100 MG PO DAILY, TAB 12/12/18 Simvastatin (Simvastatin) 40 Mg Tablet, 40 MG PO QHS, #30 TAB 12/12/18 Follow-up Plan Follow up with Orthopedic Surgery DrLincoln [place] reynoso in 1 week. Follow up with his own pCP in 1 week Primary Care Provider Not On Staff Doctor Time spent on discharge: > 30 minutes ROSS ISAACS MD Dec 29, 2018 22:21
== END 2018-12-15 21:20 | disposition home or self-care (01) | DRG 494 ==
LOC: MS1 12-12 00:08
PROVIDERS: ADMIT Internal Medicine Nephrology; ATTEND Internal Medicine Nephrology
PROC: 0QSG06Z Reposition Right Tibia with Intramedullary Internal Fixation Device, Open Approach (ICD-10-PCS; principal; 2018-12-12 11:30)
DX: S82.251A Displaced comminuted fracture of shaft of right tibia, initial encounter for closed fracture (principal); S82.451A Displaced comminuted fracture of shaft of right fibula, initial encounter for closed fracture; I10 Essential (primary) hypertension; E78.5 Hyperlipidemia, unspecified; L40.9 Psoriasis, unspecified; W19.XXXA Unspecified fall, initial encounter
CPT/HCPCS: 71045; 73590; 80053; 85025; 85610; 85730; 93005; 97116; 97162; 97530; C1713; J0360; J0690; J1170; J1650; J2250; J2405; J2795; J3010; J3480; J7042